=== PATIENT | female | born 1965 ===

== ENCOUNTER → 2023-03-12 | Day surgery (SDC) | payer OTHER ==
[~2023-03-12] VITALS: Ht 160 cm; Wt 76.7 kg
[~2023-03-12] MED LIST: SYNTHROID125 MCG PO
[2023-03-12 09:26] LABS: HEMOGLOBIN 13.4 g/dL (12.0-15.00); MEAN CELL VOLUME 88.1 fL (80.00-100.00); MEAN CORPUSCULAR HEMOGLOBIN 31.1 pg (27.00-32.0); MEAN CORPUSCULAR HGB CONC 35.3 g/dl (32.0-36.0); PLATELET COUNT 254 K/uL (150-450); RED BLOOD COUNT 4.31 M/uL (4.00-6.00); RED CELL DISTRIBUTION WIDTH 13.2 % (11.5-14.5); URINE APPEARANCE Clear; URINE BILIRRUBIN Negative (NEGATIVE); URINE BLOOD Negative; URINE COLOR Yellow; URINE GLUCOSE Negative (NEGATIVE); URINE LEUKOCYTE Negative; URINE NITRATE Negative; URINE PROTEIN Negative (NEGATIVE); URINE UROBILINOGEN 0.2 E.U./dl
[2023-03-12 09:30] LABS: URINE BACTERIA 38.6 uL (0.0-1933); URINE EPITHELIAL CELLS 4.6 uL (0.0-38.8)
[2023-03-12 09:38] LABS: URINE WBC 1.4 uL (0.0-23.2)
[2023-03-12 10:02] LABS: ALBUMIN 4.1 gm/dL (3.4-5.0); BILIRUBIN TOTAL 0.46 mg/dL (0.3-1.2); CALCIUM 9.3 mg/dL (8.5-10.1); CREATININE SERUM 0.83 mg/dL (0.55-1.02); GFR 71.37; GLOBULINA 4.1 G/DL (2.4-3.5); POTASSIUM 4.54 mEq/L (3.5-5.1); TOTAL PROTEIN 8.2 gm/dL (6.4-8.2)
[2023-03-12 10:07] LABS: INR 0.96; PROTHROMBIN TIME 10.1 SECONDS (9.0-11.5)
[2023-03-12 10:08] LABS: PARTIAL THROMBOPLASTIN TIME 38.7 SECONDS (22.0-34.0)
== END | disposition home or self-care (01) ==
LOC: CIR.AMB 09:15 → ADM 09:15 → CIR.AMB 11:34
PROVIDERS: ATTEND Orthopaedic Surgery Hand Surgery
DX: D21.12 Benign neoplasm of connective and other soft tissue of left upper limb, including shoulder (principal); R22.32 Localized swelling, mass and lump, left upper limb

== ENCOUNTER 2023-04-02 06:00 | Day surgery (SDC) | payer OTHER | END 2023-04-02 12:55 | disposition home or self-care (01) | LOC: CIR.AMB 06:00 | PROVIDERS: ATTEND Orthopaedic Surgery Hand Surgery | DX: C49.12 Malignant neoplasm of connective and soft tissue of left upper limb, including shoulder (principal); R22.32 Localized swelling, mass and lump, left upper limb; E03.9 Hypothyroidism, unspecified ==